=== PATIENT | male | born 1990 | race Caucasian/White ===

== ENCOUNTER 2021-02-19 11:48 | Outpatient (CLI) | payer OTHER, SELFPAY ==
[2021-02-19 12:28] LABS: Add Urine Microscopic? NO; Appearance Urine Clear (Clear); Bilirubin Urine Negative (Negative); Blood Urine Negative (Negative); Color Urine Yellow (Yellow); Glucose Urine UA Negative (Negative); Ketones Urine Negative (Negative); Leukocyte Esterase Ur Negative LEU/UL (NEGATIVE); Nitrate Urine Negative (Negative); Protein Urine Negative (Negative); Specific Grav Ur 1.018 (1.001-1.035); Urobilinogen Urine Negative mg/dL (<2.0)
[2021-02-19 13:16] LABS: HIV 1/2 Ab P24 Ag Result Negative (Negative)
[2021-02-19 14:14] LABS: Rapid Plasma Reagin Non-Reactive (NonReactive)
== END 2021-02-19 11:49 | disposition home or self-care (01) ==
PROVIDERS: PCP Emergency Medicine; Visit Provider Emergency Medicine
DX: Z11.3 Encounter for screening for infections with a predominantly sexual mode of transmission (principal)
CPT/HCPCS: 36415; 81003; 86592; 86703; G0432

== ENCOUNTER 2021-02-26 08:37 | Outpatient (CLI) | payer OTHER, SELFPAY ==
--- NOTE | ~2021-02-26 | US_ITS ---
US right upper quadrant INDICATION: Hepatitis C PROCEDURE: Realtime right upper abdominal ultrasound. COMPARISON: No prior studies for comparison. FINDINGS: The pancreas is normal without focal mass or pancreatic ductal dilation. Liver echotexture is normal without focal mass or intrahepatic biliary dilatation. There is normal directional flow i n the portal vein. The gallbladder is normal without stones, gallbladder wall thickening or pericholecystic fluid. Comm on bile duct measures 2 mm. No sonographic Kong's sign. IMPRESSION: 1: Normal limited abdominal ultrasound. Reviewed, dictated and finalized at location B.
== END 2021-02-26 08:38 | disposition home or self-care (01) ==
LOC: ANHIMG 08:39
PROVIDERS: PCP Emergency Medicine; Visit Provider Emergency Medicine
DX: B19.20 Unspecified viral hepatitis C without hepatic coma (principal)
CPT/HCPCS: 76705

== ENCOUNTER → 2021-04-13 06:32 | Outpatient (CLI) | payer OTHER, SELFPAY ==
[2021-04-13 17:24] LABS: SARS-CoV-2 RNA PCR Negative
== END ==
PROVIDERS: PCP Emergency Medicine; Visit Provider Emergency Medicine
DX: Z20.822 Contact with and (suspected) exposure to COVID-19 (principal); R09.89 Other specified symptoms and signs involving the circulatory and respiratory systems
CPT/HCPCS: C9803; U0003; U0005

== ENCOUNTER → 2021-05-25 06:40 | Outpatient (CLI) | payer OTHER, SELFPAY ==
[2021-05-25 20:36] LABS: SARS-CoV-2 RNA PCR Negative
== END ==
PROVIDERS: PCP Emergency Medicine; Visit Provider Emergency Medicine
DX: Z20.822 Contact with and (suspected) exposure to COVID-19 (principal); R09.89 Other specified symptoms and signs involving the circulatory and respiratory systems
CPT/HCPCS: C9803; U0003; U0005

== ENCOUNTER 2021-10-01 11:26 | Outpatient (CLI) | payer OTHER, SELFPAY ==
--- NOTE | ~2021-10-01 | US_ITS ---
EXAMINATION: US right upper quadrant DATE: 10/01/2021 12:14 INDICATION: Hepatitis C. TECHNIQUE: Multiple grayscale and Doppler ultrasound images of the abdomen were obtained. COMPARISON: Ultrasound 02/26/2021 FINDINGS: The visualized portions of the head and body of the pancreas are normal. The liver is joslyn l without focal lesion. No liver surface nodularity. There is normal flow in main portal vein. The ga llbladder is normal in size. No gallstones or gallbladder wall thickening. There was no sonographic M urphy sign. The common duct is normal and measures 3 mm. IMPRESSION: 1. Normal right upper quadrant ultrasound. Reviewed, dictated and finalized at location A. KLOAD CHECKER
[2021-10-01 12:44] LABS: Hematocrit 42.6 % (42.0-52.0); Mean Corpuscular HGB Conc 35.2 g/dl (32-36); Mean Corpuscular Hemoglobin 31.9 pg (26-34); Mean Corpuscular Volume 90.6 fl (80-100); Mean Platelet Volume 11.2 fl (7.4-10.4); Platelet Count Result 196 k/mm3 (150-375); Red Cell Distribution Width 12.2 % (11.5-14.5); White Blood Count 7.6 K/mm3 (4.5-10.0)
[2021-10-01 12:57] LABS: Alanine Aminotransferase 39 U/L (4-50); Albumin Level 4.2 g/dL (3.5-5.1); Alkaline Phosphatase 65 U/L (38-126); Anion Gap 5 mmol/L (8-16); Aspartate Amino Transferase 35 U/L (17-59); Bilirubin Indirect 0.5 mg/dL (0-1.1); Bilirubin,Total 0.5 mg/dL (0.2-1.3); Blood Urea Nitrogen 13 mg/dL (9-20); Calcium 8.8 mg/dL (8.4-10.2); Carbon Dioxide 26 mmol/L (22-30); Chloride 104 mmol/L (98-107); Estimated Glomerular Filt Rate > 60; Glucose 93 mg/dL (65-110); Sodium 135 mmol/L (137-145)
[2021-10-01 12:57] LABS: INR 0.9; Prothrombin Time 12.1 Seconds (11.1-14.7)
[2021-10-01 12:58] LABS: Partial Thromboplastin Time 30.2 SECONDS (22.3-36.8)
[2021-10-01 13:05] LABS: Transferrin 256 mg/dL (206-381)
[2021-10-01 13:23] LABS: Erythrocyte Sedimentation Rate 6 mm/hr (0-20)
[2021-10-01 13:24] LABS: Iron 88 ug/dL (49-181)
[2021-10-01 13:46] LABS: Percent Iron Saturation 26 % (20-50)
[2021-10-01 13:56] LABS: Hepatitis B Surface Antigen Negative (Negative)
[2021-10-01 14:01] LABS: HAV RESULT Negative (Negative); Hepatitis B Core IgM Result Negative (Negative)
[2021-10-01 14:19] LABS: Hepatitis B Surface Anti Res Positive; Hepatitis C Virus Antibody Reactive (Negative)
[2021-10-05 07:29] LABS: Hepatitis C RNA, Quant PCR 3360000 IU/mL
[2021-10-05 11:49] LABS: Actin Antibody (IgG) <20 U (<20)
[2021-10-05 12:35] LABS: Ceruloplasmin 29 mg/dL (18-36)
[2021-10-06 12:29] LABS: Mitochondrial (M2) Ab (IgG) <=20.0 U (<=20.0)
[2021-10-07 15:10] LABS: HCV Genotype, LiPA 3
== END 2021-10-01 11:27 | disposition home or self-care (01) ==
PROVIDERS: PCP Emergency Medicine; Visit Provider Internal Medicine Gastroenterology
DX: B19.20 Unspecified viral hepatitis C without hepatic coma (principal)
CPT/HCPCS: 36415; 76705; 80053; 82104; 82248; 82390; 82728; 83516; 83520; 83540; 83550; 84466; 85027; 85610; 85652; 85730; 86038; 86705; 86706; 86709; 86803; 87340; 87522

== ENCOUNTER 2021-10-11 13:32 | Outpatient (CLI) | payer OTHER, SELFPAY | END 2021-10-11 13:33 | disposition home or self-care (01) | LOC: ANHLAB 13:34 | PROVIDERS: PCP Emergency Medicine; Visit Provider Internal Medicine Gastroenterology | DX: B19.20 Unspecified viral hepatitis C without hepatic coma (principal) | CPT/HCPCS: 36415; 82172; 82247; 82465; 82947; 82977; 83010; 83883; 84450; 84460; 84478 ==

== ENCOUNTER 2022-10-06 10:26 | Outpatient (CLI) | payer OTHER, SELFPAY ==
[2022-10-06 10:56] LABS: Hematocrit 43.2 % (42.0-52.0); Hemoglobin 14.8 g/dL (14.0-18.0); Mean Corpuscular HGB Conc 34.3 g/dl (32-36); Mean Corpuscular Hemoglobin 30.1 pg (26-34); Mean Corpuscular Volume 87.8 fl (80-100); Platelet Count Result 232 k/mm3 (150-375); Red Blood Count 4.92 M/mm3 (4.6-6.20); Red Cell Distribution Width 12.6 % (11.5-14.5); White Blood Count 5.3 K/mm3 (4.5-10.0)
[2022-10-06 10:57] LABS: Appearance Urine Clear (Clear); Bilirubin Urine Negative (Negative); Blood Urine Negative (Negative); Color Urine Yellow (Yellow); Glucose Urine UA Negative (Negative); Ketones Urine Negative (Negative); Leukocyte Esterase Ur Negative LEU/UL (NEGATIVE); Nitrate Urine Negative (Negative); Protein Urine Negative (Negative); Urobilinogen Urine 0.2 mg/dL (<2.0); pH Urine 6.5 (5.0-9.0)
[2022-10-06 11:06] LABS: Add Urine Microscopic? NO
[2022-10-06 11:07] LABS: Alanine Aminotransferase 26 U/L (6-50); Albumin Level 4.4 g/dL (3.5-5.1); Alkaline Phosphatase 73 U/L (38-126); Anion Gap 6 mmol/L (8-16); Aspartate Amino Transferase 24 U/L (17-59); Bilirubin,Total 0.5 mg/dL (0.2-1.3); Blood Urea Nitrogen 9 mg/dL (9-20); Calcium 8.6 mg/dL (8.4-10.2); Carbon Dioxide 27 mmol/L (22-30); Chloride 104 mmol/L (98-107); Cholesterol 175 mg/dL (0-200); Estimated Glomerular Filt Rate > 60; Glucose 113 mg/dL (65-110); HDL Direct 31 mg/dL; Potassium 3.9 mmol/L (3.4-5.0); Sodium 137 mmol/L (137-145); Triglycerides 183 mg/dL (<150)
[2022-10-06 11:14] LABS: Creatinine Urine 163.6 mg/dL
[2022-10-06 11:20] LABS: LDL Cholesterol Direct 92 mg/dL
[2022-10-06 11:42] LABS: Thyroid Stimulating Hormone Reflex 0.691 uIU/mL (0.465-4.68)
[2022-10-06 11:50] LABS: Hemoglobin A1C 5.4 % (<5.7)
[2022-10-06 12:12] LABS: Hepatitis C Virus Antibody Reactive (Negative)
[2022-10-06 14:05] LABS: MALB Creatinine Ratio < 3.7 mg/g (0-30); Microalbumin Urine Random < 6.0 mg/L (0-16.7)
[2022-10-11 17:23] LABS: Hepatitis C RNA, Quant PCR <15 IU/mL
== END 2022-10-06 10:27 | disposition home or self-care (01) ==
PROVIDERS: Family Medicine; PCP Emergency Medicine; Referring Provider Emergency Medicine; Visit Provider Internal Medicine Gastroenterology
DX: Z00.00 Encounter for general adult medical examination without abnormal findings (principal); R10.9 Unspecified abdominal pain; B19.20 Unspecified viral hepatitis C without hepatic coma; R11.2 Nausea with vomiting, unspecified
CPT/HCPCS: 36415; 80053; 80061; 81003; 82043; 82306; 83036; 84443; 85027; 86803; 87522

== ENCOUNTER 2022-10-10 08:00 | Outpatient (CLI) | payer OTHER, SELFPAY ==
--- NOTE | ~2022-10-10 | US_ITS ---
EXAMINATION: US right upper quadrant DATE: 10/10/2022 08:30 INDICATION: Hepatitis C TECHNIQUE: Multiple grayscale and Doppler ultrasound images of the abdomen were obtained. COMPARISON: 10/01/2021 FINDINGS: The head and body of the pancreas are normal. The pancreatic tail is obscured by bowel gas. The liver is normal with normal echogenicity and echotexture. No surface nodularity. Normal hepatope jensen flow in the main portal vein. The gallbladder is normal with no abnormal wall thickening, pericho lecystic fluid or stones. The normal common bile duct measures 3 mm. There was no sonographic Kong sign. IMPRESSION: 1. Unremarkable right upper quadrant ultrasound. Reviewed, dictated and finalized at location A. OWNER OPERATOR
== END 2022-10-10 08:01 | disposition home or self-care (01) ==
PROVIDERS: PCP Emergency Medicine; Visit Provider Internal Medicine Gastroenterology
DX: B19.20 Unspecified viral hepatitis C without hepatic coma (principal)
CPT/HCPCS: 76705

== ENCOUNTER 2025-02-05 08:01 | Emergency (ER) | payer OTHER, MEDICAID, SELFPAY ==
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
[2025-02-05 08:04] VITALS: BP 161/99; PULSE 103; RESP 14; TEMP 36.4; O2SAT 100
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
--- OUTSIDE RECORDS SUMMARY | 2025-02-05 08:08 | XMS_ITS | Encounter Summary ---
Author Organization [facility] Address [facility] [place] [address] Care Team Providers Care Racing Car Driver Name Role Phone Unavailable Primary Care Provider Unavailabl e Encounter Details Date Type Department Care Team (Late st Contact Info) Description 04/06/2019 Abstract [facility] CONVERSION [address] [place] [address] , Generic Conversion, Social History Tobacco Use Types Packs/Day Years Used Date Smoking Tobacco: Never Assessed Sex and Gender Information Value Date Recorded Sex Assigned at Not on file Legal Sex Male 4:46 PM CDT Gender Identity Not on file Sexual Orientation Not on file documented as of this encounter Plan of Treatment Not on file documented as of this encounter Visit Diagnoses Not on filedocumented in this encounter
--- OUTSIDE RECORDS SUMMARY | 2025-02-05 08:08 | XMS_ITS | Clinical Summary ---
Author Organization [facility] Address [facility] [place] [address] Care Team Providers Care Aircraft Tool Maker Name Role Phone Unavailable Primary Care Provider Unavailabl e Social History Tobacco Use Types Packs/Day Years Used Date Smoking Tobacco: Never Assessed Sex and Gender Information Value Date Recorded Sex Assigned at Not on file Legal Sex Male 4:46 PM CDT Gender Identity Not on file Sexual Orientation Not on file Last Filed Vital Signs Vital Sign Reading Time Taken Comments Blood Pressure 110/70 01/03/2017 9:45 AM CUTTER GRINDER OPERATOR Pulse 88 01/03/2017 9:45 AM CUTTER GRINDER OPERATOR Temperature - - Respiratory Rate - - Oxygen Saturation - - Inhaled Oxygen Concentration - - Weight 77.6 kg (171 lb) 01/03/2017 9:45 AM CUTTER GRINDER OPERATOR Height 170.2 cm (5' 7 ) 01/03/2017 9:45 AM CUTTER GRINDER OPERATOR Body Mass Index 26.78 01/03/2017 9:45 AM CUTTER GRINDER OPERATOR Plan of Treatment Health Maintenance Due Date Last Done Comments Annual Physical 1993 Hepatitis C 02/03/2008 DTaP, Tdap and Td Vaccines ( 1 - Tdap) 2009 Hepatitis B Vaccines (1 of 3 - 19+ 3-dose series) 2009 COVID-19 Vaccine (2023-2 5 season) 2024 HPV Vaccines Aged Out No longer eligi ble based on patient's age to complete this topic Meningococcal B Vaccine Aged Out No l onger eligible based on patient's age to complete this topic Meningococcal Vaccine Aged Out No kelsey shayan eligible based on patient's age to complete this topic Pneumococcal Vaccine: Pediat rics (0 to 5 Years) and At-Risk Patients (6 to 64 Years) Aged Out No longer eligible b ased on patient's age to complete this topic RSV Immunizations Under 20 Months Aged Out No longer eligible based on patient's age to complete this topic
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
[2025-02-05 08:44] VITALS: BP 127/89; PULSE 58; RESP 18; TEMP 36.7; O2SAT 94
[2025-02-05 09:16] LABS: Add Urine Microscopic? NO; Appearance Urine Clear (Clear); Bilirubin Urine Negative (Negative); Blood Urine Negative (Negative); Color Urine Yellow (Yellow); Glucose Urine UA Negative (Negative); Ketones Urine Negative (Negative); Leukocyte Esterase Ur Negative LEU/UL (Negative); Nitrate Urine Negative (Negative); Protein Urine Negative (Negative); Specific Grav Ur 1.002 (1.001-1.035); Urobilinogen Urine 0.2 mg/dL (<2.0)
[2025-02-05 09:22] LABS: Basophils Percent Auto 0.7 % (0.2-1.2); Eosinophils Absolute Auto 0.1 K/mm3 (0-0.3); Eosinophils Percent Auto 1.8 % (0-4.4); Hematocrit 42.6 % (42.0-52.0); Hemoglobin 14.5 g/dL (14.0-18.0); Immature Granulocyte Absolute 0.01 K/mm3 (0.00-0.031); Immature Granulocyte Percent A 0.2 % (0-0.5); Lymphocytes Absolute Auto 1.73 K/mm3 (0.9-3.2); Lymphocytes Percent Auto 30.8 % (18.3-44.2); Mean Corpuscular Hemoglobin 29.4 pg (26-34); Mean Corpuscular Volume 86.4 fl (80-100); Mean Platelet Volume 11.3 fl (7.4-10.4); Monocytes Absolute Auto 0.3 K/mm3 (0.1-0.6); Monocytes Percent Auto 5.9 % (2.6-8.5); Neutrophils Absolute Auto 3.4 K/mm3 (1.3-6.7); Neutrophils Percent Auto 60.6 % (45.5-73.1); Platelet Count Result 214 k/mm3 (150-375); Red Blood Count 4.93 M/mm3 (4.6-6.20); White Blood Count 5.6 K/mm3 (4.5-10.0)
[2025-02-05 09:24] LABS: Estimated CRCL calculation 77 ml/min; Estimated Glomerular Filt Rate > 60
--- OUTSIDE RECORDS SUMMARY | 2025-02-05 09:51 | XMS_ITS | Clinical Summary ---
Author Organization [facility] Address [address] [place] [address] Care Team Providers Care Mac Operator Name Role Phone Bruce Lu MD Primary Care Provider [phone] Source Comments [facility],non-owned Affiliates and Associated Physician Practices is amultiple site organization consisting of ambulatory clinics and hospital sitesin [place], [place], [place] and [place]. This disclosure is being madepursuant to the Care Everywhere program and may not contain all information available regarding this patient. Last updated 18.[facility] Allergies No known active allergies Medications * [...] fluticasone propionate (Flonase) 50 MCG/ACT nasal spray [place] 1 (one) spray into each nostril 2 [...] 8:03 PM 05/18/2022 4:24 PM Care Teams Mac Operator Relationship Specialty Start Date End Date Bruce Lu MD [address] [place] [id number] PCP - General 05/23/22
--- OUTSIDE RECORDS SUMMARY | 2025-02-05 09:51 | XMS_ITS | Clinical Summary ---
Author Organization [facility] Address [facility] [place] [address] Care Team Providers Care Hand Box Coverer Name Role Phone Unavailable Primary Care Provider [...] Comments Blood Pressure 110/70 01/03/2017 9:45 AM STEM CLEANING MACHINE FEEDER Pulse 88 01/03/2017 9:45 AM STEM CLEANING MACHINE FEEDER Temperature - - Respiratory Rate - - Oxygen Saturation - - Inhaled Oxygen Concentration - - Weight 77.6 kg (171 lb) 01/03/2017 9:45 AM STEM CLEANING MACHINE FEEDER Height 170.2 cm (5' 7 ) 01/03/2017 9:45 AM STEM CLEANING MACHINE FEEDER Body Mass Index 26.78 01/03/2017 9:45 AM STEM CLEANING MACHINE FEEDER Plan of Treatment Health Maintenance Due Date [...]
--- OUTSIDE RECORDS SUMMARY | 2025-02-05 09:51 | XMS_ITS | Encounter Summary ---
Author Organization [facility] Address [facility] [place] [address] Care Team Providers Care Ballaster Name Role Phone Unavailable Primary Care Provider Unavailabl e Encounter Details Date Type Department Care Team (Late st Contact Info) Description 04/06/2019 Abstract [facility] CONVERSION [address] [place] [address] , Generic Conversion, Social History Tobacco Use [...]
[2025-02-05 10:14] LABS: Alanine Aminotransferase 24 U/L (6-50); Albumin Level 4.4 g/dL (3.5-5.1); Alkaline Phosphatase 76 U/L (38-126); Anion Gap 7 mmol/L (4-12); Aspartate Amino Transferase 30 U/L (17-59); Bilirubin,Total 0.4 mg/dL (0.2-1.3); Blood Urea Nitrogen 12 mg/dL (9-20); Calcium 9.1 mg/dL (8.4-10.2); Carbon Dioxide 27 mmol/L (22-30); Chloride 106 mmol/L (98-107); Estimated CRCL calculation 90 ml/min; Estimated Glomerular Filt Rate > 60; Glucose 101 mg/dL (65-110); Lipase 21 U/L (23-300); Potassium 4.5 mmol/L (3.4-5.0); Sodium 140 mmol/L (137-145)
[2025-02-05 11:48] VITALS: BP 120/70; PULSE 60; RESP 16; O2SAT 94
== END 2025-02-05 11:58 | disposition home or self-care (01) ==
PROVIDERS: Emergency Provider Emergency Medicine; PCP Emergency Medicine
DX: S39.92XA Unspecified injury of lower back, initial encounter (principal); R10.9 Unspecified abdominal pain; M47.817 Spondylosis without myelopathy or radiculopathy, lumbosacral region; M87.9 Osteonecrosis, unspecified; V86.55XA Driver of 3- or 4- wheeled all-terrain vehicle (ATV) injured in nontraffic accident, initial encounter
CPT/HCPCS: 36415; 72132; 74177; 80053; 81003; 83690; 85025; 99284; Q9967